=== PATIENT | female | born 1990 | race Two or more races ===

== ENCOUNTER 2023-10-26 14:30 | Emergency (ER) | payer MEDICAID, SELFPAY ==
[~2023-10-26] VITALS: Ht 154.9 cm; Wt 66.0 kg
[2023-10-26 15:38] LABS: ALANINE AMINOTRANSFERASE 56 U/L (12-78); ALBUMIN 3.6 G/DL (3.4-5.0); ALBUMIN/GLOBULIN RATIO 0.9 (1.1-1.5); ALKALINE PHOSPHATASE 64 IU/L (46-116); ANION GAP 8 (8-16); ASPARTATE AMINO TRANSFERASE 25 U/L (10-37); BILIRUBIN,TOTAL 0.2 MG/DL (0.1-1.0); BLOOD UREA NITROGEN 11 MG/DL (7-18); CALCIUM 9.2 MG/DL (8.5-10.1); CHLORIDE 102 MMOL/L (99-107); CREATININE 0.61 MG/DL (0.40-0.90); GLUCOSE 87 MG/DL (70-104); POTASSIUM 3.6 MMOL/L (3.5-5.1); SODIUM 137 MMOL/L (135-145); TOTAL CARBON DIOXIDE 26.8 MMOL/L (24-32); TOTAL PROTEIN 7.8 G/DL (6.4-8.2); eCRCL 101 ML/MIN; eGFR > 90 ML/MIN
[2023-10-26 15:39] LABS: BASOPHILS # (AUTO) 0.1 X10'3 (0-0.2); BASOPHILS % (AUTO) 0.9 % (0-1); EOSINOPHILS # (AUTO) 0.1 X10'3 (0-0.9); EOSINOPHILS % (AUTO) 1.8 % (0-6); HEMATOCRIT 43.4 % (35.0-45.0); HEMOGLOBIN 14.8 g/dl (12.0-16.0); LYMPHOCYTES # (AUTO) 1.6 X10'3 (1.1-4.8); LYMPHOCYTES % (AUTO) 26.4 % (21-51); MEAN CORPUSCULAR HEMOGLOBIN 28.6 PG (27.0-31.0); MEAN CORPUSCULAR VOLUME 83.9 FL (78-98); MONOCYTES # (AUTO) 0.3 X10'3 (0-0.9); MONOCYTES % (AUTO) 5.6 % (2-12); NEUTROPHILS % (AUTO) 65.3 % (42-75); PLATELET COUNT 205 X10'3 (140-440); RED BLOOD COUNT 5.18 X10'6 (4.20-5.60); RED CELL DISTRIBUTION WIDTH 13.5 % (11.5-14.5); WHITE BLOOD COUNT 6.2 X10'3 (4.5-11.0)
[2023-10-26 15:47] LABS: THYROID STIMULATING HORMONE 0.82 ulU/ml (0.34-4.50)
[2023-10-26] MEDS ORDERED: acetaminophen 325mg tablet PO ONE (15:50)
[2023-10-26] MEDS ORDERED: dexamethasone sod phosphate 10mg/ml inj IM STA (16:40)
[2023-10-26] MEDS ORDERED: SUMAtriptan succ. 6 MG/0.5ml vial SQ ONE (16:40)
[2023-10-26] MEDS ORDERED: SUMA100T PO (17:07)
[2023-10-26 17:28] VITALS: BP 113/76; PULSE 71; TEMP 98.2; O2SAT 97
[2023-10-26 17:31] VITALS: RESP 16
== END 2023-10-26 17:33 | disposition home or self-care (01) ==
LOC: ER 14:31
DX: G43.909 Migraine, unspecified, not intractable, without status migrainosus (principal); Z98.890 Other specified postprocedural states
CPT/HCPCS: 36415; 70450; 80053; 84443; 85025; 96372; 99285; J1100; J3030